=== PATIENT | female | born 1945 | race Caucasian/White ===

== ENCOUNTER 2017-09-15 23:06 | Inpatient (IN) | payer MEDICARE, OTHER ==
[~2017-09-15] VITALS: Ht 160 cm; Wt 75.2 kg
[~2017-09-15 23:06] MED LIST: ACTOS45 MG PO; BLOOD PRESSURE PILL; BONIVA150 MG PO; DUONEB 2.5-0.5 M3 ML UPD; GLUCOPHAGE1000 MG PO; MEDROL DOSE PACK4 MG PO; NICODERM C1 PATCH .3 TD; NORVASC5 MG PO; PROCTOFOAM-HC 110 GM RC; PROTONIX40 MG PO; TAMIFLU75 MG PO; TESSALON PERLE100 MG PO; ZITHROMAX250 MG PO; ZOLOFT50 MG PO; [UNRECOGNIZED DRUG - REMARK]; [UNRECOGNIZED DRUG - REMARK]
[2017-09-15 23:58] LABS: BASOPHILS 0.1 % (0-2); EOSINOPHILS 0.1 % (0-7); HEMATOCRIT 41.3 % (36.0-48.0); HEMOGLOBIN 14.2 g/dL (12-16); IMMATURE GRANULOCYTES 0.1 % (0-5); MCH 32.9 pg (26.0-34.0); MCHC 34.4 g/dL (31.0-37.0); MCV 95.6 fL (80.0-100.0); MEAN PLATELET VOLUME 9.1 fL (7.4-10.4); MONOCYTES 10.2 % (2-11); NEUTROPHILS 71.5 % (40-80); PLATELET COUNT 253 10x3/uL (130-400); RBC 4.32 10x6/uL (4.00-5.40); RDW 13.1 % (11.5-14.5); WBC 8.9 10x3/uL (4.8-10.8)
[2017-09-16 00:12] LABS: ALBUMIN 3.6 g/dL (3.4-5.0); ALKALINE PHOSPHATASE 94 U/L (46-116); ALT (SGPT) 23 U/L (10-68); BILIRUBIN - TOTAL 0.33 mg/dL (0.2-1.3); CALC OSMOLALITY 280 mosm/kg (275-300); CALCIUM 9.7 mg/dL (8.5-10.1); CARBON DIOXIDE 31.7 mmol/L (21.0-32.0); CHLORIDE - SERUM 100 mmol/L (98-107); GLUCOSE 138 mg/dL (74-106); POTASSIUM - SERUM 3.8 mmol/L (3.5-5.1); PROTEIN - SERUM 7.4 g/dL (6.4-8.2); SODIUM 139 mmol/L (136-145); UREA NITROGEN 16 mg/dL (7-18); eGFR NON AFRICAN AMERICAN 58 mL/min (90-120)
[2017-09-16 00:26] LABS: CHOL - HDL RATIO 2.8 ratio (2.3-4.1); CHOLESTEROL, TOTAL 158 mg/dL (0-200); CKMB 5.4 U/L (0.0-3.6); CREATINE KINASE 65 UL (21-215); HDL CHOLESTEROL 57 mg/dL (32-96); LDL CHOLESTEROL 73 mg/dL (0-100); LDL-HDL RATIO 1.3 ratio (1.5-3.5); TRIGLYCERIDE 141 mg/dL (30-200); TROPONIN-I < 0.017 ng/mL (0.000-0.060)
[2017-09-16] MEDS ORDERED: LIPITOR20 MG PO (01:31)
[2017-09-16] MEDS ORDERED: LISINOPRIL-HCTZ1 T11 PO (01:31)
[2017-09-16 02:16] VITALS: BP 85/37
[2017-09-16 02:37] VITALS: BMI 29.2
[2017-09-16 05:19] VITALS: BP 90/35
[2017-09-16 12:25] VITALS: BP 110/46
[2017-09-16 16:18] VITALS: BP 125/55
[2017-09-16 20:50] VITALS: BP 132/53
[2017-09-17 01:45] VITALS: BP 117/46
[2017-09-17 06:21] LABS: BASOPHILS 0 % (0-2); EOSINOPHILS 0 % (0-7); HEMATOCRIT 36.8 % (36.0-48.0); HEMOGLOBIN 12.3 g/dL (12-16); IMMATURE GRANULOCYTES 0.4 % (0-5); LYMPHOCYTES 8.1 % (15-50); MCH 32.2 pg (26.0-34.0); MCHC 33.4 g/dL (31.0-37.0); MCV 96.3 fL (80.0-100.0); MEAN PLATELET VOLUME 8.7 fL (7.4-10.4); MONOCYTES 3.1 % (2-11); NEUTROPHILS 88.4 % (40-80); PLATELET COUNT 218 10x3/uL (130-400); RBC 3.82 10x6/uL (4.00-5.40); RDW 13.2 % (11.5-14.5); WBC 7.4 10x3/uL (4.8-10.8)
[2017-09-17 06:36] LABS: ANION GAP 11.1 mmol/L (8-16); BILIRUBIN - TOTAL 0.19 mg/dL (0.2-1.3); CALCIUM 9.2 mg/dL (8.5-10.1); CARBON DIOXIDE 31.5 mmol/L (21.0-32.0); PROTEIN - SERUM 6.8 g/dL (6.4-8.2)
[2017-09-17 06:38] LABS: CREATININE - SERUM 1.3 mg/dL (0.6-1.3); POTASSIUM - SERUM 4.6 mmol/L (3.5-5.1)
[2017-09-17 07:01] VITALS: BP 134/44
[2017-09-17 09:25] VITALS: BP 149/65
[2017-09-17 12:43] VITALS: BP 118/53
[2017-09-17 17:32] VITALS: BP 143/65
[2017-09-17 20:00] VITALS: BP 146/63
[2017-09-18 00:30] VITALS: BP 169/70
[2017-09-18 04:30] VITALS: BP 138/53
[2017-09-18 06:08] LABS: BASOPHILS 0.1 % (0-2); EOSINOPHILS 0 % (0-7); HEMATOCRIT 35.9 % (36.0-48.0); HEMOGLOBIN 12.1 g/dL (12-16); IMMATURE GRANULOCYTES 0.1 % (0-5); LYMPHOCYTES 23.5 % (15-50); MCH 32.6 pg (26.0-34.0); MCHC 33.7 g/dL (31.0-37.0); MCV 96.8 fL (80.0-100.0); MEAN PLATELET VOLUME 8.9 fL (7.4-10.4); MONOCYTES 12.5 % (2-11); NEUTROPHILS 63.8 % (40-80); PLATELET COUNT 230 10x3/uL (130-400); RBC 3.71 10x6/uL (4.00-5.40); RDW 13.5 % (11.5-14.5)
[2017-09-18 06:56] LABS: ANION GAP 10.3 mmol/L (8-16); BILIRUBIN - TOTAL 0.3 mg/dL (0.2-1.3); CALCIUM 9.2 mg/dL (8.5-10.1); CARBON DIOXIDE 32.5 mmol/L (21.0-32.0); PROTEIN - SERUM 6.4 g/dL (6.4-8.2)
[2017-09-18 06:57] LABS: POTASSIUM - SERUM 3.8 mmol/L (3.5-5.1)
[2017-09-18 08:41] VITALS: BP 137/59
[2017-09-18 11:43] VITALS: BP 146/53
[2017-09-18 12:45] VITALS: Ht 160 cm; Wt 75.2 kg
[2017-09-18] MEDS ORDERED: LEVAQUIN500 MG PO (17:07)
[2017-09-18] MEDS ORDERED: STERAPRED DS 1010 MG PO (17:09)
== END 2017-09-18 17:38 | disposition home or self-care (01) | DRG 191 ==
LOC: D.ER 23:06 → D.M2 09-16 00:47
PROVIDERS: Emergency Medicine; Family Medicine
DX: J44.0 Chronic obstructive pulmonary disease with (acute) lower respiratory infection (principal); F17.203 Nicotine dependence unspecified, with withdrawal; J44.1 Chronic obstructive pulmonary disease with (acute) exacerbation; J20.9 Acute bronchitis, unspecified; I10 Essential (primary) hypertension; E78.5 Hyperlipidemia, unspecified; E11.65 Type 2 diabetes mellitus with hyperglycemia

== ENCOUNTER 2018-01-16 07:05 | Outpatient (CLI) | payer MEDICARE ==
[~2018-01-16] VITALS: Ht 160 cm; Wt 74.5 kg
--- NOTE | ~2018-01-16 | EC ---
PATIENT:JENNY CAO DATE OF SERVICE: 01/16/18 SEX: F MEDICAL RECORD: [id number] DATE OF : 45 LOCATION:D.CAT AGE OF PATIENT: 72 ADMISSION DATE: 01/16/18 REFERRING PHYSICIAN: INTERPRETING PHYSICIAN: NATALEE LOUISE MD ECHOCARDIOGRAM REPORT ECHO CHARGES 4 ECHO COMPLETE Date: 01/16 CLINICAL DIAGNOSIS: ANGINA/CP ECHOCARDIOGRAPHIC MEASUREMENTS (adult normal given) AC root (d.<3.7cm) 3.1 cm LV Septum d (<1.2 cm> 1.5 cm Valve Excursion 2.0 cm LV Septum (systole) 2.0 cm Left Atria (s.<4.0cm> 3.4 cm LVPW d(<1.2cm) 1.5 cm RV (d.<2.3cm) 1.9 cm LVPW (sytole) 1.9 cm LV diastole(<5.6CM) 4.3 cm MV E-F(>70mm/sec) cm LV systole 2.4 cm LVOT Diameter 1.6 cm MV exc.(>10mm) cm Est.ejection fraction (50-75%) % DOPPLER: LVIT cm/sec A 96.0 cm/sec E 69.0 cm/sec LA cm/sec RVSP 29.3 mmHg LVOT 125 cm/sec AOP1/2T m/s Asc. Ao 172 cm/sec RVOT 97.0 cm/sec RA cm/sec PA 137 cm/sec AV Gradient Peak 12.0 mmHg AV Mean 6.0 mmHg AV Area 1.6 cm MV Gradient Peak 5.1 mmHg MV Mean 1.2 mmHg MV Area cm COMMENTS: Heating Operators Engineer: Zane ODONNELLOE Atm Servicer: Emi Louise TAPE# PACS Pericardial Effusion N DATE OF SERVICE: PROCEDURE: Transthoracic echocardiogram. FINDINGS: 1. Left ventricle has mild to moderate left ventricular hypertrophy, inflow characteristics consistent with diastolic dysfunction. Ejection fraction is 60%. 2. The right ventricle is normal size, normal function. 3. The left atrium is normal structure, normal function, normal size. ECHOCARDIOGRAM REPORT [id number] JENNY CAO 4. The aortic valve is normal. 5. The mitral valve has trace mitral regurgitation. 6. The pulmonic valve has trace pulmonic insufficiency. 7. The right ventricular systolic pressure is normal. 8. The right atrium is normal size, normal function. CONCLUSION: The patient has evidence of mild hypertensive heart disease, otherwise normal echo for stated age. TRANSINT:[id number] Voice Confirmation ID: [id number] DOCUMENT ID: [id number] NATALEE LOUISE MD at 0853 CC: [id number] DICTATION DATE: 01/17/18821 GENERATION TECHNOLOGIST: 01/17/18 1022 DEP CLI 01/16/18 [place] [id number] [place] [id number]
--- NOTE | ~2018-01-16 | HEMODYNAMI ---
PATIENT:JENNY CAO MEDICAL RECORD: [id number] : 45 LOCATION:DSCOTTY ADMISSION DATE: 01/16/18 Generatedon:01/16/20188:46 Patient name: JENNY CAO Patient #: [id number] SSN: DO B: 1945 Date of study: 01/16/2018 Page: Of Hemodynamic Procedure Report Patient Data Patient Demographics Procedure consent was obtained First Name: JENNY Gender: Female Last Name: NASH : 1945 [facility] Initial: EILEEN Age: 72 year(s) Patient #: [id number] Race: Unknown Additional ID: [id number] Contact details Address: [address] [address] State: [place] City: [place] Zip code: [address] Past Medical History Allergies Allergen Reaction Date Comments Reported Codeine 01/16/2018 Admission Admission Data Admission Date: 01/16/2018 Admission Time: 7:05 Admit Source: Other Lab Results Lab Result Date: 01/16/2018 Lab Result Time: 0:00 Biochemistry Name Units Result Min Max BUN mg/dl 17 --(---*)-- 7 18 Creatinine mg/dl 0.9 --(-*--)-- 0.6 1.3 Procedure Procedure Types Cath Procedure Diagnostic Procedure [facility] w/Coron[facility] Procedure Description Procedure Date Procedure Date: 01/16/2018 Procedure Start Time: 8:30 Procedure End Time: 8:43 Procedure Staff Name Function Moses Edwards MD Performing Physician Sneha White RN Nurse Ronald Zheng RT Scrub Austin Hunt RT Monitor Procedure Data Cath Procedure Fluoroscopy Diagnostic fluoroscopy Total fluoroscopy Time: 2.2 time: 2.2 min min Diagnostic fluoroscopy Total fluoroscopy dose: dose: 62.3 mGy 62.3 mGy Contrast Material Contrast Material Type Amount (ml) Isovue 300 55 Entry Location Entry Primary Successful Side Size Upsize Upsize Entry Closure Jacome ccessful Closure Location (Fr) 1 (Fr) 2 (Fr) Remarks Device Remarks Radial Right 6 Fr Mechanical artery Short Compression Estimated blood loss: 10 ml Diagnostic catheters Device Type Used For End Catheter Placement DIAGNOSTIC Burgaw 110cm 5 Procedure Fr catheter ([id number]) Procedure Medications Medication Administration Route Dosage Oxygen NC 2 l/min Lidocaine 2% added to field 20 Heparin Flush Bag added to field 2 bags (1000units/500ml NS) 0.9% NaCl I.V. 100 ml/hr Versed I.V. 1 mg Fentanyl I.V. 25 mcg Radial Cocktail I.A. 1 syringe (Verapomil 2mg/Nitro 400mcg/Heparin 1500units) Versed I.V. 0.5 mg Hemodynamics Rest Heart Rate: 56 (bpm) Pressure Samples Time Site Value (mmHg) Purpose Heart Use Rate(bpm) 8:31 LV 166/-22,1 Snapshot 106 8:32 LV 100/10,2 EDP 74 Gradients Valve Time Site Site Mean SEP/DFP Peak To Heart Use 1 2 (mmHg) (sec/min) Peak Rate (mmHg) (bpm) Aortic 8:32 LV AO 61 Snapshots Pre Cath Intra NCS Post Cath Vital Signs Time Heart Resp SPO2 etCO2 NIBP (mmHg) Rhythm Pain Sedation Rate (ipm) (%) (mmHg) Status Level (bpm) 8:14:02 54 24 91 0 176/72(147) NSR 0 (11) 10(A) , No pain 8:19:41 62 28 92 0 149/73(127) NSR 0 (11) 10(A) , No pain 8:24:33 57 24 96 0 150/73(129) NSR 0 (11) 10(A) , No pain 8:29:22 56 27 98 26.3 121/65(94) NSR 0 (11) 9(A) , No pain 8:34:07 65 23 93 0 123/61(95) NSR 0 (11) 9(A) , No pain 8:38:56 63 20 94 0 131/56(101) NSR 0 (11) 10(A) , No pain Medications Time Medication Route Dose Verified Delivered Reason Notes E ffectiveness by by 8:18:37 Oxygen NC 2 l/min Moses Buffie used for Grace White golf course laborer 8:18:43 Lidocaine 2% added 20ml Moses Moses for local to vial Grace Edwards MD anesthetic field MD 8:18:49 Heparin Flush added 2 bags Moses Moses used for Bag to Grace Edwards MD procedure (1000units/500ml field NS) 8:19:17 0.9% NaCl I.V. 100 Moses Buffie Per ml/hr Grace White RN physician 8:24:11 Versed I.V. 1 mg Moses Buffie for sedation Grace White RN, MD 8:24:17 Fentanyl I.V. 25 mcg Moses Buffie for sedation Grace White RN, MD 8:29:50 Radial Cocktail I.A. 1 Moses Moses for (Verapomil syringe Grace Edwards MD vasodilation 2mg/Nitro MD 400mcg/Heparin 1500units) 8:30:29 Versed I.V. 0.5 mg Moses Buffie for sedation Grace White RN, MD Procedure Log Time Note 7:55:58 Informed consent obtained and on chart 7:56:01 Admit Source: Other 7:56:41 Diagnostic Cath status Elective 7:56:42 Time tracking: Regular hours (M-F 7:00 - 5:00) 7:56:46 Plan of Care:Hemodynamics will remain stable., Cardiac rhythm will remain stable., Comfort level will be maintained., Respiratory function will remain adequate., Patient/ family verbilizes understanding of procedure., Procedure tolerated without complication., Recovers from procedure without complications.. 7:57:07 H&P Date Dictated: 01/14/2018 Within 30 days and on chart., H&P Addendum completed by physician on day of procedure. (MUST COMPLETE FOR ALL OUTPATIENTS). 8:04:49 Patient received from Pre/Post Procedure Room to CCL 1 Alert and oriented. Tansferred to table in Supine position. 8:04:50 Warm blankets applied, and reinier hugger turned on for patient comfort. 8:04:50 Correct patient and procedure confirmed by team. 8:04:51 ECG and BP/O2 sat monitors applied to patient. 8:04:53 Pre-procedure instructions explained to patient. 8:04:53 Pre-op teaching completed and patient verbalized understanding. 8:04:54 Family in waiting room. 8:04:56 Patient NPO since Midnight. 8:12:50 Vital chart was started 8:15:37 Baseline sample Acquired. 8:15:44 Rhythm: sinus rhythm 8:15:54 Patient allergic to Codeine 8:16:02 Is the patient allergic to Iodine/contrast media? No. 8:16:33 Patient diabetic? Yes. 8:16:56 If diabetic: On Metformin? Yes 8:17:09 If on Metformin: Last Dose? 01/14/2018 8:17:31 PATIENT TOLD TO HOLD NEXT 48 HOURS 8:18:18 Is patient on blood thinner?Yes 8:18:21 ACC The patient was administered the following blood thiners within the last 24 hours: ACCPlavix 8:18:35 ----Pre-sedation anethsthesia assessment.---- 8:18:37 Oxygen 2 l/min NC was administered by Sneha White RN; used for procedure; 8:18:43 Lidocaine 2% 20ml vial added to field was administered by Moses Edwards MD; for local anesthetic; 8:18:49 Heparin Flush Bag (1000units/500ml NS) 2 bags added to field was administered by Moses Edwards MD; used for procedure; 8:19:02 Previous problem with sedation/anesthesia? Yes SLOW TO WAKE 8:19:06 Snore? Yes 8:19:08 Sleep apnea? Yes 8:19:11 Deviated septum? No 8:19:12 Opens mouth fully? Yes 8:19:14 Sticks out tongue? Yes 8:19:17 0.9% NaCl 100 ml/hr I.V. was administered by Sneha White RN; Per physician; 8:19:18 Airway obstruction? Yes COPD 8:19:34 Pre procedure: right dorsailis pedis pulse 2+ Normal; easily identifiable; not easily obliterated 8:19:38 Modified Ronnell's test Ulnar < 7 seconds 8:19:44 Patient pain scale 0/10 ?. 8:20:33 IV patent on arrival in left hand with 0.9% NaCl at [facility]. 8:22:06 Lab Result : Creatinine 0.9 mg/dl 8:22:06 Lab Result : BUN 17 mg/dl 8:22:12 Lab results completed and on chart. 8:22:19 Right Radial & Right Groin area was prepped with chlora-prep and draped in sterile fashion 8:22:21 Alarms reviewed by RUbaldo NUbaldo 8:22:23 Sharps counted by scrub and verified by JorgeN. 8:: Physician arrived 8:: --------ALL STOP TIME OUT------ :: Final Timeout: patient, procedure, and site verified with staff and physician. All members of the team are in agreement. 8:22:30 Right Radial & Right Groin site verified by team. 8:22:34 Physical assessment completed. ASA score P 2 - A patient with mild systemic disease as per Moses Edwards MD. 8:22:38 Sedation plan: IV Moderate Sedation Medication:Versed, Fentanyl 8:22:59 Use device set Radial Dx or PCI 8:23:01 ACIST Syringe (69670) opened to sterile field. 8:23:01 Medline Cath Pack ([id number]) opened to sterile field. 8:23:02 Bag Decanter (2002S) opened to sterile field. 8:23:03 DIAGNOSTIC WIRE .035 260cm J wire (885355) opened to sterile field. 8:23:04 ACIST Hand Control (70494) opened to sterile field. 8:23:04 ACIST Manifold (03539) opened to sterile field. 8:23:06 Tegaderm 4 x 4 (1626W) opened to sterile field. 8:23:08 MBrace Wrist Support ([id number]) opened to sterile field. 8:23:17 SHEATH 6Fr Prelude Radial ([id number]) opened to sterile field. 8:24:11 Versed 1 mg I.V. was administered by Sneha White RN; for sedation; 8:24:17 Fentanyl 25 mcg I.V. was administered by Sneha White RN; for sedation; 8:29:50 Radial Cocktail (Verapomil 2mg/Nitro 400mcg/Heparin 1500units) 1 syringe I.A. was administered by Moses Edwards MD; for vasodilation; 8:30:05 Procedure started. 8:30:05 Full Disclosure recording started 8:30:12 Local anesthetic to right radial artery with Lidocaine 2% by Moses Edwards MD.INITIAL ACCESS ONLY 8:30:29 Versed 0.5 mg I.V. was administered by Sneha White RN; for sedation; 8:30:29 A 6 Fr Short sheath was inserted into the Right Radial artery 8:30:56 A DIAGNOSTIC Burgaw 110cm 5 Fr catheter ([id number]) was advanced over the wire and used for Procedure. 8:31:18 Zero performed for pressure channel P1 8:31:20 Zero performed for pressure channel P1 8:31:23 Zero performed for pressure channel P1 8:31:30 Zero performed for pressure channel P1 8:32:38 LV hemodynamics recorded. 8:32:46 LV gram done using GARCIA 8:32:55 EF : 60 % 8:33:04 RCA angiography performed. 8:34:41 LCA angiography performed. 8:37:54 Catheter removed. 8:38:07 TR BAND Standard ([id number]) opened to sterile field. 8:38:24 Sheath removed intact; hemostasis achieved with Mechanical Compression to the Right Radial artery. 8:38:28 Procedure ended.(Physican Out) 8:38:38 Fluoroscopy time 02.20 minutes. 8:38:47 Fluoroscopy dose: 62.3 mGy 8:38:47 Flurop Dose total: 62.3 8:38:52 Contrast amount:Isovue 300 55ml. 8:38:57 Sharps counted by scrub and verified by R.N. 8:40:10 two gold tone rings one with purple stone and one with clear stones taken off of rt hand due to tr band placement and placed on left hand of pt with tape over the top to secure. 8:40:14 TR band inflated with 10cc of air. 8:40:16 Insertion/operative site no bleeding no hematoma. 8:40:44 Post right radial artery:stable 8:40:49 Post Procedure Pulses reassessed and unchanged 8:40:55 Post-procedure physical assessment completed. ASA score P 2 - A patient with mild systemic disease as per Moses Edwards MD. 8:42:10 Post procedure rhythm: unchanged. 8:42:15 Estimated blood loss: 10 ml 8:42:20 Post procedure instruction explained to patient.Patient verbalizes understanding. 8:42:21 Patient needs reinforcement of post procedure teaching. 8:42:45 Procedure and supply charges have been captured, reviewed, submitted and are correct. 8:42:49 Vital chart was stopped 8:42:50 See physician's report for complete and final results. 8:42:58 Report given to Pre/Post Procedure Room. 8:43:03 Patient transfered to Pre/Post Procedure Room with Stretcher. 8:43:06 Procedure ended. 8:43:06 Full Disclosure recording stopped 8:43:11 End room use (Document Last) Device Usage Item Name Manufacture Quantity Catalog Number Hospital Part Current M inimal Lot# / Charge Number Stock Stock Serial# Code ACIST Syringe Acist 1 50046 319592 184323 587923 2 0 (62463) Medical Systems Inc Medline Cath Cardinal 1 [id number] 078250 01144 683476 5 Pack Health ([id number]) Bag Decanter Microtek 1 2001S 447513 83135 877369 5 (2001S) Medical Inc. DIAGNOSTIC WIRE St Jv 1 408236 851548 830673 497783 3 0 .035 260cm J wire (945962) ACIST Hand Acist 1 30282 316340 177149 644135 5 Control (66332) Medical Systems Inc ACIST Manifold Acist 1 96926 034865 031739 826279 5 (76515) Medical Systems Inc Tegaderm 4 x 4 3M 1 1626W 495249 578491 689314 5 (1626W) MBrace Wrist Advanced 1 140-0250-00 838703 35797 397282 5 Support Vascular ([id number]) Dynamics SHEATH 6Fr Merit 1 [id number] 091401 151730 654290 5 Prelude Radial Medical ([id number]) DIAGNOSTIC Terumo 1 40-3333 071009 145952 720921 5 Burgaw 110cm 5 Fr catheter (101145) TR BAND Terumo 1 [id number] 150248 373512 435906 4 0 Standard ([id number]) Signature Audit [place] Stage Time Signature Unsigned Intra-Procedure 01/16/2018 Austin Hunt 8:46:29 AM RT(R) (CV) Signatures Monitor : Austin Hunt RT Signature : Date : Time : [facility] [address] [place] [address]
[~2018-01-16 07:05] MED LIST changes: +LEVAQUIN500 MG PO; +LIPITOR20 MG PO; +LISINOPRIL-HCTZ1 T11 PO; +STERAPRED DS 1010 MG PO
[2018-01-16] MEDS ORDERED: STOOL SOFTENER100 M1 PO (07:14)
[2018-01-16] MEDS ORDERED: BENZONATATE200 MG PO (07:14)
[2018-01-16] MEDS ORDERED: CINNAMON500 MG PO (07:15)
[2018-01-16] MEDS ORDERED: FEMARA2.5 MG PO (07:15)
[2018-01-16] MEDS ORDERED: BAYER CHEWABLE81 MG PO (07:15)
[2018-01-16 07:28] VITALS: BP 162/74; Ht 160 cm; Wt 74.5 kg
[2018-01-16 07:38] LABS: BASOPHILS 0.2 % (0-2); EOSINOPHILS 1.3 % (0-7); HEMATOCRIT 40.4 % (36.0-48.0); HEMOGLOBIN 13.8 g/dL (12-16); IMMATURE GRANULOCYTES 0.2 % (0-5); LYMPHOCYTES 20.5 % (15-50); MCH 32.4 pg (26.0-34.0); MCHC 34.2 g/dL (31.0-37.0); MCV 94.8 fL (80.0-100.0); MEAN PLATELET VOLUME 8.6 fL (7.4-10.4); MONOCYTES 7.3 % (2-11); NEUTROPHILS 70.5 % (40-80); PLATELET COUNT 268 10x3/uL (130-400); RBC 4.26 10x6/uL (4.00-5.40); WBC 9.3 10x3/uL (4.8-10.8)
[2018-01-16 08:18] LABS: ANION GAP 16.7 mmol/L (8-16); CALCIUM 9.2 mg/dL (8.5-10.1); CARBON DIOXIDE 25.3 mmol/L (21.0-32.0); CREATININE - SERUM 0.9 mg/dL (0.6-1.3)
[2018-01-16] MEDS ORDERED: LIPITOR80 MG PO (08:49)
== END 2018-01-16 11:30 | disposition home or self-care (01) ==
LOC: D.CATH 07:05
PROVIDERS: Internal Medicine Cardiovascular Disease
DX: I20.9 Angina pectoris, unspecified (principal); I51.7 Cardiomegaly; Z01.812 Encounter for preprocedural laboratory examination

== ENCOUNTER → 2018-03-28 16:36 | Outpatient (CLI) | payer MEDICARE ==
[2018-01-16 07:28] VITALS: BMI 29.1
[~2018-03-28 16:36] MED LIST changes: +BAYER CHEWABLE81 MG PO; +BENZONATATE200 MG PO; +CINNAMON500 MG PO; +FEMARA2.5 MG PO; +LIPITOR80 MG PO; +STOOL SOFTENER100 M1 PO
[2018-03-28 16:57] LABS: CHOL - HDL RATIO 3.3 ratio (2.3-4.1); LDL-HDL RATIO 1.8 ratio (1.5-3.5)
== END | disposition home or self-care (01) ==
LOC: D.LABREF 16:36
PROVIDERS: Internal Medicine Cardiovascular Disease
DX: E78.5 Hyperlipidemia, unspecified (principal)

== ENCOUNTER 2018-07-24 22:32 | Inpatient (IN) | payer MEDICARE ==
[~2018-07-24] VITALS: Ht 160 cm; Wt 68.9 kg
--- NOTE | ~2018-07-24 | MORECARE ---
CASE MANAGEMENT DISCHARGE SUMMARY PATIENT: JENNY CAO EILEEN UNIT: [id number] ADM DATE: 07/25/18 AGE: 72 : 45 SEX: F ROOM/BED: D.2227 AUTHOR: GUERRERO,DOC PHYSICIAN: REFERRING PHYSICIAN: JORGE TREJO DO DATE OF SERVICE: 07/26/18 Discharge Plan Patient Name: JENNY CAO Facility: [facility]:[place] : 1945 Planned Disposition: Home Anticipated Discharge Date: 07/26/18 Discharge Date: 07/26/2018 Expected LOS: 1 Initial Reviewer: [email or web address] Initial Review Date: 07/26/2018 Generated: 07/26/18 5:54 pm Comments DCP- Discharge Planning Updated by [email or web address]: Charla Young on 07/26/18 2:[address] Patient Name: JENNY CAO Admission Status: ER Accout number: [id number] Admission Date: 07-25-2018 : 1945 Admission Diagnosis: Attending: JORGE RTEJO Current LOS: 1 Anticipated DC Date: 07-26-2018 Planned Disposition: Home Primary Insurance: MEDICARE A & B Discharge Planning Comments: CM met with patient and her in the room to discuss discharge planning. She lives with her in a one story home. She is independent with all ADL's. states normally she is steady on her feet, "just had a mishap in the dark". I discussed availability of rehab, SNF and home health services and they decline at this time. I also discussed DME, they state they do not need any DME at this time. Her states he will be with her all weekend and plans on returning to work on Sunday. States the plan is to return home and will drive her home. No needs identified at this time. CM will continue to follow and assist with discharge planning/needs. Shipping And Receiving: Charla Young DCPIA - Discharge Planning Initial Assessment Updated by [email or web address]: Charla Young on 07/26/18 2:58 pm * Is the patient Alert and Oriented? Yes * How many steps to enter\\exit or inside your home? 1/0 * PCP Amauri * [facility] * Preadmission Environment Home with Family * ADLs Independent * Equipment None * List name and contact numbers for known caregivers / representatives who currently or will assist patient after discharge: [place] ,spouse [phone] * Verbal permission to speak to the caregivers and representatives has been obtained from the patient. Yes * Community resources currently utilized None * Additional services required to return to the preadmission environment? No * Can the patient safely return to the preadmission environment? Yes * Has this patient been hospitalized within the prior 30 days at any hospital? No Last DP export: 07/26/18 2:03 p Patient Name: JENNY CAO Page 56610 at 1654 All edits/amendments must be made on the electronic document DICTATION DATE: 07/26/181653 OUTBOUND SALES PROFESSIONAL: AFTAB 07/26/181653 RPT#: [id number] DC DATE:07/26/18 STATUS: DIS IN [facility] [address] [place] [address] END OF REPORT
--- NOTE | ~2018-07-24 | MORECARE ---
CASE MANAGEMENT DISCHARGE SUMMARY PATIENT: JENNY CAO EILEEN UNIT: [id number] ADM DATE: 07/25/18 AGE: 72 : 45 SEX: F ROOM/BED: D.2227 AUTHOR: GUERRERO,DOC PHYSICIAN: REFERRING PHYSICIAN: JORGE TREJO DO DATE OF SERVICE: 07/26/18 Discharge Plan Patient Name: JENNY CAO Facility: [facility]:[place] : 1945 Planned Disposition: Home Anticipated Discharge Date: 07/26/18 Discharge Date: Expected LOS: 1 Initial Reviewer: [email or web address] Initial Review Date: 07/26/2018 Generated: 07/26/18 4:03 pm Comments DCP- Discharge Planning Updated by [email or web address]: Charla Young on 07/26/18 2:[address] Patient Name: JENNY CAO Admission Status: ER Accout number: [id number] Admission Date: 07-25-2018 : 1945 Admission Diagnosis: Attending: JORGE TREJO Current LOS: 1 Anticipated DC Date: 07-26-2018 Planned Disposition: Home Primary Insurance: MEDICARE A & B Discharge Planning Comments: CM met with patient and her in the room to discuss discharge planning. She lives with her in a one story home. She is independent with all ADL's. states normally she is steady on her feet, "just had a mishap in the dark". I discussed availability of rehab, SNF and home health services and they decline at this time. I also discussed DME, they state they do not need any DME at this time. Her states he will be with her all weekend and plans on returning to work on Sunday. States the plan is to return home and will drive her home. No needs identified at this time. CM will continue to follow and assist with discharge planning/needs. Java Scala Developer: Charla Young DCPIA - Discharge Planning Initial Assessment Updated by [email or web address]: Charla Young on 07/26/18 2:58 pm * Is the patient Alert and Oriented? Yes * How many steps to enter\\exit or inside your home? 1/0 * PCP Amauri * [facility] * Preadmission Environment Home with Family * ADLs Independent * Equipment None * List name and contact numbers for known caregivers / representatives who currently or will assist patient after discharge: [place] ,spouse [phone] * Verbal permission to speak to the caregivers and representatives has been obtained from the patient. Yes * Community resources currently utilized None * Additional services required to return to the preadmission environment? No * Can the patient safely return to the preadmission environment? Yes * Has this patient been hospitalized within the prior 30 days at any hospital? No Patient Name: JENNY CAO Page 16330 at 1503 All edits/amendments must be made on the electronic document DICTATION DATE: 07/26/181501 DIESEL LOCOMOTIVE FIRER/FIREMAN: AFTAB 07/26/181501 RPT#: [id number] DC DATE: STATUS: ADM IN [facility] [address] [place] [address] END OF REPORT
--- NOTE | ~2018-07-24 | OP ---
PATIENT NAME: JENNY CAO MEDICAL RECORD: [id number] :[birth year] LOCATION:D.MS [address] ADMISSION DATE:07/24/18 SURGEON: JORGE TREJO DO DATE OF OPERATION: 07/25/2018 PROCEDURE PERFORMED: Left distal radius open reduction internal fixation and DRUJ stabilization. PREOPERATIVE DIAGNOSIS: Type 1 open intra-articular 2-part distal radius fracture and ulna fracture. POSTOPERATIVE DIAGNOSIS: Type 1 open intra-articular 2-part distal radius fracture and ulna fracture. INDICATIONS: Ms. Cao is a 72-year-old right-hand dominant female, who fell off the porch yesterday, came to the ER approximately 11:30 p.m., was seen to have an open distal radius and ulna fracture at the ulnar styloid and intra-articular 2-part distal radius fracture. She reported to the ER and seen to have an open fracture. She was given Ancef and tetanus status was checked, and she was admitted in anticipation of surgery within 6 hours. Due to OR scheduling, she did get started at approximately 9 p.m. for the surgery. She is aware of the risks and benefits of the procedure including infection as it was elevated, nonunion, delayed union, damage to nerves and vessels and bleeding and the need for further surgery. She is aware of all the risks, and she consented to the procedure. SURGEON: Jorge Trejo DO DESCRIPTION OF PROCEDURE: The patient was taken to the operative suite. After given a block by anesthesia in the preoperative area, laid in the supine position. The left upper extremity was prepped and draped in sterile fashion. A time-out was performed. Everyone was in agreement with the correct side, site, and patient. The patient had been given Ancef preoperatively every 8 hours and had her scheduled dose. After a time-out was performed, the incision began over the flexor carpi radialis tendon. Careful dissection was made down into the distal radius fracture. Hohmanns were used to expose the radius and the pronator quadratus was taken off the distal radius. Once the fracture was exposed and reduced, the plate was put on and held with K-wires and held in good reduction and shaft screw was then put in the sliding hole of the plate and then locking screws were placed, 3 on the ulnar side and 3 on the radial side, one into the radial styloid and then 2 more locking screws were placed into the shaft, and the plate seemed to have very good fixation and a nice reduction of the articular surface and then ulnar was checked and the ulnar styloid fracture was quite unstable. There was a lot of movement in the ulna and a 0.062 K-wire was used to stabilize it going across from the ulnar side of the ulna into the radius holding it very stable. This was then checked and confirmed under fluoro, did not have any movement. I will plan on pulling the pin in 3 weeks. The tourniquet was used. The left upper extremity was exsanguinated and tourniquet was inflated to 250 mmHg and was up for 52 minutes throughout the procedure. It was let down after the pinning of the DRUJ and any bleeders at that time were coagulated with a pickup and a Bovie. The wound was then thoroughly irrigated as well as the open wound that was on the ulnar side of the wrist. The open wound site was closed with 5-0 Monocryl in a horizontal mattress fashion. The incision then over the flexor carpi radialis was closed with 3-0 Vicryl and 5-0 Monocryl ran on the skin and Prineo Dermabond glue put OPERATIVE REPORT [id number] JENNY CAO on that. Adaptic was placed over each of these and over the pin and on the ulnar side and a 4 x 4 was placed on top of that and Webril on top of that and then a 3 x 12-inch Orthoglass splint was placed and secured with a 4-inch Odin wrap. The patient was then awakened and taken to recovery in stable condition BLOOD LOSS: 50 mL. COMPLICATIONS: None. Skeletal Dynamics Geminus plate was used for the fixation. TRANSINT:[id number] Voice Confirmation ID: [id number] DOCUMENT ID: [id number] JORGE TREJO DO at 1550 CC: [id number] DICTATION DATE: 07/25/18 1059 MEDICAID BILLING SPECIALIST: 07/25/18 1327 ADM IN [place] [id number] [place] [address]
[2018-07-24 23:30] VITALS: BP 211/92
[2018-07-24 23:45] LABS: LYMPHOCYTES 19.1 % (15-50); MCHC 34.1 g/dL (31.0-37.0); MCV 93.8 fL (80.0-100.0); MEAN PLATELET VOLUME 8.1 fL (7.4-10.4); NEUTROPHILS 74.5 % (40-80); PLATELET COUNT 246 10x3/uL (130-400); RBC 4.37 10x6/uL (4.00-5.40); RDW 12.6 % (11.5-14.5); WBC 9.4 10x3/uL (4.8-10.8)
[2018-07-24 23:53] LABS: INR 0.96 (0.85-1.17); PROTIME 12.4 SECONDS (11.6-15.0)
[2018-07-24 23:58] LABS: ALBUMIN 3.4 g/dL (3.4-5.0); ANION GAP 11.6 mmol/L (8-16); BILIRUBIN - TOTAL 0.14 mg/dL (0.2-1.3); CALCIUM 9.5 mg/dL (8.5-10.1); CARBON DIOXIDE 33.3 mmol/L (21.0-32.0); CREATININE - SERUM 0.9 mg/dL (0.6-1.3); MAGNESIUM - SERUM 1.3 mg/dL (1.8-2.4); POTASSIUM - SERUM 3.9 mmol/L (3.5-5.1); PROTEIN - SERUM 7.6 g/dL (6.4-8.2)
[2018-07-25] VITALS (11 sets, daily range): BP systolic 122–178; BP diastolic 51–72; Ht 160 cm; Wt 68.9 kg
[2018-07-26 04:00] VITALS: BP 167/67
[2018-07-26 05:43] LABS: HEMOGLOBIN 12.7 g/dL (12-16)
[2018-07-26 08:18] VITALS: BP 115/70
[2018-07-26 12:47] VITALS: BP 142/51
[2018-07-26] MEDS ORDERED: ZOFRAN ODT4 MG/UDTAB PO (15:12)
[2018-07-26] MEDS ORDERED: KEFLEX500 MG PO (15:12)
[2018-07-26] MEDS ORDERED: NORCO 7.5/325 T1 TA1 PO (15:12)
== END 2018-07-26 16:42 | disposition home or self-care (01) | DRG 511 ==
LOC: OBSVTIME → D.ER 22:32 → D.OPS 22:32 → D.ER 23:32 → D.MS 23:32 → D.EDHOLD 23:32 → OBSVTIME 23:32 → D.MS 23:59 → D.EDHOLD 23:59 → D.ER 07-25 00:45 → EDSTATUS 07-25 08:30 → D.MS 07-25 15:49
PROVIDERS: Emergency Medicine; Orthopaedic Surgery
PROC: 0PSJ04Z Reposition Left Radius with Internal Fixation Device, Open Approach (ICD-10-PCS; principal; 2018-07-25 08:30)
DX: S52.502B Unspecified fracture of the lower end of left radius, initial encounter for open fracture type I or II (principal); F32.0 Major depressive disorder, single episode, mild; S52.602B Unspecified fracture of lower end of left ulna, initial encounter for open fracture type I or II; W17.89XA Other fall from one level to another, initial encounter; E11.9 Type 2 diabetes mellitus without complications; I10 Essential (primary) hypertension; E78.5 Hyperlipidemia, unspecified; J44.9 Chronic obstructive pulmonary disease, unspecified; M81.0 Age-related osteoporosis without current pathological fracture; M19.90 Unspecified osteoarthritis, unspecified site; Z72.0 Tobacco use

== ENCOUNTER → 2018-12-24 19:41 | Outpatient (CLI) | payer MEDICARE ==
[~2018-12-24 19:41] MED LIST changes: +KEFLEX500 MG PO; +NORCO 7.5/325 T1 TA1 PO; +ZOFRAN ODT4 MG/UDTAB PO
== END | disposition home or self-care (01) ==
LOC: D.MAMMO 19:41
DX: Z12.31 Encounter for screening mammogram for malignant neoplasm of breast (principal)

== ENCOUNTER 2019-05-10 21:51 | Emergency (ER) | payer MEDICARE ==
[~2019-05-10] VITALS: Ht 160 cm; Wt 72.8 kg
[2019-05-10 21:56] VITALS: Ht 160 cm; Wt 72.8 kg
[2019-05-10 22:27] LABS: BASOPHILS 0.1 % (0-2); EOSINOPHILS 0.6 % (0-7); HEMATOCRIT 44.2 % (36.0-48.0); HEMOGLOBIN 15.5 g/dL (12-16); IMMATURE GRANULOCYTES 0.3 % (0-5); LYMPHOCYTES 21.2 % (15-50); MCH 34.1 pg (26.0-34.0); MCHC 35.1 g/dL (31.0-37.0); MCV 97.4 fL (80.0-100.0); MEAN PLATELET VOLUME 8.7 fL (7.4-10.4); MONOCYTES 6.8 % (2-11); PLATELET COUNT 250 10x3/uL (130-400); RBC 4.54 10x6/uL (4.00-5.40); RDW 12.5 % (11.5-14.5); WBC 14.2 10x3/uL (4.8-10.8)
[2019-05-10 22:37] LABS: KETONE - SERUM NEGATIVE (NEGATIVE)
[2019-05-10 22:40] LABS: APPEARANCE CLEAR (CLEAR); COLOR YELLOW (YELLOW); GLUCOSE 250 mg/dL (NEGATIVE); NITRITE NEGATIVE (NEGATIVE); PROTEIN 1+ mg/dL (NEGATIVE)
[2019-05-10 22:41] LABS: BACTERIA NONE SEEN /hpf (NONE SEEN); BILIRUBIN NEGATIVE (NEGATIVE); EPITHELIAL CELLS 0-5 /hpf (0-5); KETONE SMALL mg/dL (NEGATIVE); RED CELLS - URINE 0-5 /hpf (0-5); UROBILINOGEN NORMAL (NORMAL)
[2019-05-10 22:45] LABS: ALBUMIN 3.4 g/dL (3.4-5.0); ALKALINE PHOSPHATASE 121 U/L (46-116); ALT (SGPT) 22 U/L (10-68); BILIRUBIN - TOTAL 0.18 mg/dL (0.2-1.3); CALC OSMOLALITY 287 mosm/kg (275-300); CALCIUM 9.4 mg/dL (8.5-10.1); CARBON DIOXIDE 34.7 mmol/L (21.0-32.0); CHLORIDE - SERUM 100 mmol/L (98-107); CREATININE - SERUM 1.1 mg/dL (0.6-1.3); GLUCOSE 258 mg/dL (74-106); POTASSIUM - SERUM 4.1 mmol/L (3.5-5.1); PROTEIN - SERUM 7.6 g/dL (6.4-8.2); SODIUM 139 mmol/L (136-145); UREA NITROGEN 14 mg/dL (7-18); eGFR NON AFRICAN AMERICAN 51 mL/min (90-120)
[2019-05-10 22:53] LABS: C-REACTIVE PROTEIN 2.1 mg/dL (0.0-0.9); LIPASE 159 U/L (73-393); PRO BNP 347 pg/mL (0-125); THYROID STIMULATING HORMONE 2.75 uIU/mL (0.36-3.74); TROPONIN-I < 0.017 ng/mL (0.000-0.060)
== END 2019-05-11 01:10 | disposition left against medical advice (07) ==
LOC: D.ER 21:51
PROVIDERS: Family Medicine
DX: J02.9 Acute pharyngitis, unspecified (principal); R13.10 Dysphagia, unspecified

== ENCOUNTER → 2020-11-18 17:37 | Outpatient (CLI) | payer MEDICARE ==
[2019-05-10 21:56] VITALS: BMI 28.4
== END | disposition home or self-care (01) ==
LOC: D.MAMMO 11-01 11:45
PROVIDERS: ATTEND Clinical Nurse Specialist Adult Health
DX: Z12.31 Encounter for screening mammogram for malignant neoplasm of breast (principal)